=== PATIENT | female | born 1990 | race Caucasian/White ===

== ENCOUNTER 2017-09-10 23:01 | Emergency (ER) | payer OTHER ==
[~2017-09-10] VITALS: Ht 162.6 cm; Wt 148.0 kg
[~2017-09-10 23:01] MED LIST: MELATONIN PO; NORCO PO; PANT40TA25 PO; TRAZ-147 PO
[2017-09-10 23:11] VITALS: BP 153/94
[2017-09-10 23:53] LABS: BASOPHILS % (AUTO) 0.5 % (0.0-2.0); EOSINOPHILS % (AUTO) 3.9 % (1.0-6.0); HEMATOCRIT 39.4 % (36-46); HEMOGLOBIN 13.3 g/dL (12.0-16.0); LYMPHOCYTES # (AUTO) 0.9 K/uL (1.0-4.8); LYMPHOCYTES % (AUTO) 10.3 % (22.0-44.0); MEAN CORPUSCULAR HEMOGLOBIN 28.9 pg (26.0-34.0); MEAN CORPUSCULAR HGB CONC 33.8 G/dL (31.0-37.0); MEAN CORPUSCULAR VOLUME 85 fL (80-100); MONOCYTES # (AUTO) 0.6 K/uL (0.1-1.0); MONOCYTES % (AUTO) 7.4 % (2.0-9.0); NEUTROPHILS # (AUTO) 6.5 K/uL (1.8-7.7); NEUTROPHILS % (AUTO) 77.9 % (40.0-70.0); PLATELET COUNT (AUTO) 267 K/uL (150-450); RED BLOOD CELL COUNT(AUTO) 4.61 MIL/uL (4.00-5.20); RED CELL DISTRIBUTION WIDTH 14.3 % (11.5-14.5)
[2017-09-11 00:08] LABS: ANION GAP 12 mmol/L (8-16); CALCIUM, TOTAL 9.3 mg/dL (8.8-10.5); CARBON DIOXIDE 25 mmol/L (22-29); CHLORIDE 102 mmol/L (98-107); CREATININE 0.77 mg/dL (0.60-1.30); GLOMERULAR FILTR. RATE CALC > 60 mL/min (>60); GLUCOSE,RANDOM 100 mg/dL (70-110); SODIUM SERUM 139 mmol/L (136-145); UREA NITROGEN, BLOOD 11 mg/dL (7-18)
[2017-09-11 00:09] LABS: AMPHET/METH SCREEN,URINE NEGATIVE (NEGATIVE); BARBITURATE SCREEN, URINE NEGATIVE (NEGATIVE); BENZODIAZEPINES SCREEN,URINE NEGATIVE (NEGATIVE); CANNABINOID SCREEN,URINE NEGATIVE (NEGATIVE); COCAINE SCREEN,URINE NEGATIVE (NEGATIVE); METHADONE SCREEN, URINE NEGATIVE (NEGATIVE); OPIATE SCREEN,URINE NEGATIVE (NEGATIVE)
[2017-09-11 00:10] LABS: PHENCYCLIDINE SCREEN,URINE NEGATIVE (NEGATIVE)
[2017-09-11 00:14] LABS: ALANINE AMINOTRANSFERASE 44 U/L (12-78); ALKALINE PHOSPHATASE 81 U/L (46-116); ASPARTATE AMINOTRANSFERASE 32 U/L (15-37); BILIRUBIN,TOTAL 0.4 mg/dL (0.1-1.0); TOTAL PROTEIN, SERUM 7.6 g/dL (6.4-8.2)
[2017-09-11 00:27] LABS: ALBUMIN 3.9 g/dL (3.4-5.0)
[2017-09-11] MEDS ORDERED: ACETAMINOPHEN 325 MG TABLET PO ONE (00:30)
== END 2017-09-11 00:52 | disposition home or self-care (01) ==
LOC: EMS 23:02
DX: F31.9 Bipolar disorder, unspecified (principal); Z59.0 Homelessness; Z88.0 Allergy status to penicillin; Z90.49 Acquired absence of other specified parts of digestive tract
CPT/HCPCS: 36415; 80053; 80307; 84703; 85025; 99284; G0480

== ENCOUNTER 2019-08-02 00:01 | Emergency (ER) | payer OTHER ==
[~2019-08-02] VITALS: Ht 160 cm; Wt 136.4 kg
[2019-08-02 03:42] LABS: AMPHET/METH SCREEN,URINE NEGATIVE (NEGATIVE); BARBITURATE SCREEN, URINE NEGATIVE (NEGATIVE); BENZODIAZEPINES SCREEN,URINE NEGATIVE (NEGATIVE); CANNABINOID SCREEN,URINE NEGATIVE (NEGATIVE); COCAINE SCREEN,URINE NEGATIVE (NEGATIVE); METHADONE SCREEN, URINE NEGATIVE (NEGATIVE); OPIATE SCREEN,URINE NEGATIVE (NEGATIVE)
[2019-08-02 03:43] LABS: PHENCYCLIDINE SCREEN,URINE NEGATIVE (NEGATIVE)
[2019-08-02 04:29] LABS: BASOPHILS % (AUTO) 0.6 % (0.0-2.0); EOSINOPHILS % (AUTO) 2.9 % (1.0-6.0); HEMATOCRIT 37.3 % (36-46); HEMOGLOBIN 12.4 g/dL (12.0-16.0); LYMPHOCYTES % (AUTO) 22.7 % (22.0-44.0); MEAN CORPUSCULAR HEMOGLOBIN 29.3 pg (26.0-34.0); MEAN CORPUSCULAR HGB CONC 33.2 G/dL (31.0-37.0); MEAN CORPUSCULAR VOLUME 88 fL (80-100); MONOCYTES # (AUTO) 0.6 K/uL (0.1-1.0); MONOCYTES % (AUTO) 7.3 % (2.0-9.0); NEUTROPHILS # (AUTO) 5.9 K/uL (1.8-7.7); NEUTROPHILS % (AUTO) 66.5 % (40.0-70.0); PLATELET COUNT (AUTO) 294 K/uL (150-450); RED BLOOD CELL COUNT(AUTO) 4.23 MIL/uL (4.00-5.20); RED CELL DISTRIBUTION WIDTH 13.4 % (11.5-14.5)
[2019-08-02 04:38] LABS: ANION GAP 7 mmol/L (8-16); CALCIUM, TOTAL 9.2 mg/dL (8.8-10.5); CARBON DIOXIDE 29 mmol/L (22-29); CHLORIDE 105 mmol/L (98-107); CREATININE 0.93 mg/dL (0.60-1.30); GLOMERULAR FILTR. RATE CALC > 60 mL/min (>60); GLUCOSE,RANDOM 96 mg/dL (70-110); POTASSIUM 3.6 mmol/L (3.5-5.1); SODIUM SERUM 141 mmol/L (136-145); UREA NITROGEN, BLOOD 12 mg/dL (7-18)
[2019-08-02 04:50] LABS: ALANINE AMINOTRANSFERASE 35 U/L (12-78); ALBUMIN 3.8 g/dL (3.4-5.0); ALKALINE PHOSPHATASE 85 U/L (46-116); ASPARTATE AMINOTRANSFERASE 38 U/L (15-37); BILIRUBIN,TOTAL 0.4 mg/dL (0.1-1.0); HCG,QUANTITATIVE < 1 mIU/mL (0-6); TOTAL PROTEIN, SERUM 7.9 g/dL (6.4-8.2)
[2019-08-02 08:15] VITALS: BP 135/70
== END 2019-08-02 08:57 | disposition home or self-care (01) ==
LOC: EMS 00:01
DX: F25.9 Schizoaffective disorder, unspecified (principal); F41.9 Anxiety disorder, unspecified; F31.9 Bipolar disorder, unspecified; Z59.0 Homelessness; Z88.0 Allergy status to penicillin; Z88.8 Allergy status to other drugs, medicaments and biological substances
CPT/HCPCS: 36415; 80053; 80307; 84702; 85025; 99285; G0480

== ENCOUNTER 2019-08-07 00:08 | Inpatient (IN) | payer MEDICAID, OTHER ==
[~2019-08-07] VITALS: Ht 162.6 cm; Wt 149.2 kg
[2019-08-07] MEDS ORDERED: TRAZ-257 PO (02:47)
[2019-08-07] MEDS ORDERED: NAPR-1025 PO (02:47)
[2019-08-07] MEDS ORDERED: OMEP20CA12 PO (02:47)
[2019-08-07 02:53] LABS: AMPHET/METH SCREEN,URINE NEGATIVE (NEGATIVE); BARBITURATE SCREEN, URINE NEGATIVE (NEGATIVE); BENZODIAZEPINES SCREEN,URINE NEGATIVE (NEGATIVE); CANNABINOID SCREEN,URINE NEGATIVE (NEGATIVE); COCAINE SCREEN,URINE NEGATIVE (NEGATIVE); METHADONE SCREEN, URINE NEGATIVE (NEGATIVE); OPIATE SCREEN,URINE NEGATIVE (NEGATIVE)
[2019-08-07 02:54] LABS: PHENCYCLIDINE SCREEN,URINE NEGATIVE (NEGATIVE)
[2019-08-07 02:54] LABS: BASOPHILS % (AUTO) 0.6 % (0.0-2.0); EOSINOPHILS % (AUTO) 3.2 % (1.0-6.0); HEMATOCRIT 37.1 % (36-46); HEMOGLOBIN 12.3 g/dL (12.0-16.0); LYMPHOCYTES # (AUTO) 2.5 K/uL (1.0-4.8); LYMPHOCYTES % (AUTO) 26.9 % (22.0-44.0); MEAN CORPUSCULAR HEMOGLOBIN 29.4 pg (26.0-34.0); MEAN CORPUSCULAR HGB CONC 33.2 G/dL (31.0-37.0); MEAN CORPUSCULAR VOLUME 89 fL (80-100); MONOCYTES # (AUTO) 0.8 K/uL (0.1-1.0); MONOCYTES % (AUTO) 8.6 % (2.0-9.0); NEUTROPHILS # (AUTO) 5.6 K/uL (1.8-7.7); NEUTROPHILS % (AUTO) 60.7 % (40.0-70.0); PLATELET COUNT (AUTO) 304 K/uL (150-450); RED BLOOD CELL COUNT(AUTO) 4.19 MIL/uL (4.00-5.20); RED CELL DISTRIBUTION WIDTH 13.8 % (11.5-14.5)
[2019-08-07 03:03] LABS: ANION GAP 5 mmol/L (8-16); CALCIUM, TOTAL 9.3 mg/dL (8.8-10.5); CARBON DIOXIDE 30 mmol/L (22-29); CHLORIDE 103 mmol/L (98-107); CREATININE 1.01 mg/dL (0.60-1.30); GLOMERULAR FILTR. RATE CALC > 60 mL/min (>60); GLUCOSE,RANDOM 111 mg/dL (70-110); POTASSIUM 3.2 mmol/L (3.5-5.1); SODIUM SERUM 138 mmol/L (136-145); UREA NITROGEN, BLOOD 13 mg/dL (7-18)
[2019-08-07 03:14] LABS: ALANINE AMINOTRANSFERASE 64 U/L (12-78); ALKALINE PHOSPHATASE 79 U/L (46-116); ASPARTATE AMINOTRANSFERASE 89 U/L (15-37); BILIRUBIN,TOTAL 0.5 mg/dL (0.1-1.0); HCG,QUANTITATIVE < 1 mIU/mL (0-6); TOTAL PROTEIN, SERUM 8.1 g/dL (6.4-8.2)
[2019-08-07] MEDS ORDERED: POTASSIUM CHLORIDE 20 MEQ ER TABLET PO ONE (03:45)
[2019-08-07] MEDS ORDERED: HALOPERIDOL 5 MG TABLET PO ONE (12:30)
[2019-08-07] MEDS ORDERED: ZOLPIDEM TARTRATE 10 MG TABLET PO PRN (13:30)
[2019-08-07] MEDS ORDERED: IBUPROFEN 400 MG TABLET PO PRN (21:15)
[2019-08-07] MEDS ORDERED: ALBUTEROL SULFATE HFA 90 MCG/PUFF 8 GM INHALER IH PRN (21:15)
[2019-08-07] MEDS ORDERED: MAGNESIUM HYDROXIDE SUSPENSION 30 ML UDCUP PO PRN (21:15)
[2019-08-07] MEDS ORDERED: MAG HYDROX/AL HYDROX/SIMETH ES 30 ML SUSPENSION UDCUP PO PRN (21:15)
[2019-08-07] MEDS ORDERED: CloNIDine HCL 0.1 MG TABLET PO PRN (21:15)
[2019-08-07] MEDS ORDERED: ACETAMINOPHEN 325 MG TABLET PO PRN (21:15)
[2019-08-07] MEDS ORDERED: PETROLATUM,WHITE 28 GM JELLY TP PRN (21:15)
[2019-08-07] MEDS ORDERED: DOCUSATE SODIUM 100 MG CAPSULE PO PRN (21:15)
[2019-08-07] MEDS ORDERED: ONDANSETRON HCL 4 MG TABLET PO PRN (21:15)
[2019-08-07] MEDS ORDERED: LOPERAMIDE HCL 2 MG CAPSULE PO PRN (21:15)
[2019-08-07] MEDS ORDERED: NICOTINE 14 MG/24 HOUR PATCH TD PRN (21:15)
[2019-08-07 23:11] VITALS: BP 123/88
[2019-08-08] MEDS ORDERED: INFLUENZA VIRUS VACCINE QVS 2019-20 (3YR+)/PF 60 MCG/0.5 ML SYRINGE IM ONE (00:30)
[2019-08-08 06:29] VITALS: BP 118/72
[2019-08-08 08:21] VITALS: BP 126/69
[2019-08-08] MEDS ORDERED: LURASIDONE HCL 40 MG TABLET PO ONE (11:30)
[2019-08-08 16:09] VITALS: BP 121/73
[2019-08-08] MEDS ORDERED: NAPROXEN 500 MG TABLET PO SCH (17:00)
[2019-08-08] MEDS ORDERED: LURA40 PO (22:06)
[2019-08-09 05:26] VITALS: BP 113/76
[2019-08-09] MEDS: LURASIDONE HCL 40 MG TABLET PO SCH (06:54)
[2019-08-09] MEDS: NAPROXEN 500 MG TABLET PO SCH ×2 (06:54→16:42)
[2019-08-09] MEDS: OMEPRAZOLE 20 MG CAPSULE PO SCH (08:08)
[2019-08-09 08:13] VITALS: BP 135/70
[2019-08-09 16:57] VITALS: BP 138/86
[2019-08-09] MEDS: LORazepam 2 MG TABLET PO PRN (17:35)
[2019-08-10] MEDS: LURASIDONE HCL 40 MG TABLET PO SCH (06:26)
[2019-08-10] MEDS: NAPROXEN 500 MG TABLET PO SCH ×2 (06:26→17:38)
[2019-08-10 06:36] VITALS: BP 137/80
[2019-08-10 08:30] VITALS: BP 120/69
[2019-08-10] MEDS: OMEPRAZOLE 20 MG CAPSULE PO SCH (08:46)
[2019-08-10 17:29] VITALS: BP 140/81
[2019-08-11 00:34] VITALS: BP_SYST 134; BP_DIAS 6; BP_DIAS 62
[2019-08-11 01:35] VITALS: BP 132/65
[2019-08-11] MEDS: NAPROXEN 500 MG TABLET PO SCH ×2 (06:33→17:05)
[2019-08-11] MEDS: LURASIDONE HCL 40 MG TABLET PO SCH (06:33)
[2019-08-11 07:59] LABS: BASOPHILS % (AUTO) 0.7 % (0.0-2.0); HEMATOCRIT 39.9 % (36-46); HEMOGLOBIN 12.9 g/dL (12.0-16.0); LYMPHOCYTES % (AUTO) 29.3 % (22.0-44.0); MEAN CORPUSCULAR HEMOGLOBIN 29.2 pg (26.0-34.0); MEAN CORPUSCULAR HGB CONC 32.5 G/dL (31.0-37.0); MEAN CORPUSCULAR VOLUME 90 fL (80-100); MONOCYTES # (AUTO) 0.6 K/uL (0.1-1.0); MONOCYTES % (AUTO) 9.1 % (2.0-9.0); NEUTROPHILS # (AUTO) 3.9 K/uL (1.8-7.7); NEUTROPHILS % (AUTO) 55.9 % (40.0-70.0); PLATELET COUNT (AUTO) 285 K/uL (150-450); RED BLOOD CELL COUNT(AUTO) 4.44 MIL/uL (4.00-5.20); RED CELL DISTRIBUTION WIDTH 13.9 % (11.5-14.5)
[2019-08-11] MEDS: OMEPRAZOLE 20 MG CAPSULE PO SCH (08:16)
[2019-08-11 08:24] LABS: HEMOGLOBIN A1C 5.7 % (3.8-5.6)
[2019-08-11 08:25] LABS: ALANINE AMINOTRANSFERASE 58 U/L (12-78); ALBUMIN 3.8 g/dL (3.4-5.0); ALKALINE PHOSPHATASE 75 U/L (46-116); ANION GAP 7 mmol/L (8-16); ASPARTATE AMINOTRANSFERASE 44 U/L (15-37); BILIRUBIN,TOTAL 0.3 mg/dL (0.1-1.0); CALCIUM, TOTAL 9.2 mg/dL (8.8-10.5); CARBON DIOXIDE 29 mmol/L (22-29); CHLORIDE 104 mmol/L (98-107); CHOL/HDL RATIO 4.6 (3.9-5.7); CHOLESTEROL 188 mg/dL (131-200); CREATININE 0.73 mg/dL (0.60-1.30); GLOMERULAR FILTR. RATE CALC > 60 mL/min (>60); GLUCOSE,RANDOM 98 mg/dL (70-110); HDL CHOLESTEROL 41 mg/dL (40-60); LDL CHOL (CALC.) 108 mg/dL (0-130); POTASSIUM 4.2 mmol/L (3.5-5.1); SODIUM SERUM 140 mmol/L (136-145); THYROID STIMULATING HORMONE 2.53 uIU/mL (0.36-3.74); TOTAL PROTEIN, SERUM 7.3 g/dL (6.4-8.2); TRIGLYCERIDES 197 mg/dL (15-150); UREA NITROGEN, BLOOD 12 mg/dL (7-18)
[2019-08-11] MEDS: LORazepam 2 MG TABLET PO PRN ×2 (08:39→17:05)
[2019-08-11] MEDS: GuaiFENesin/D-METHORPHAN [SUGAR-FREE] 200-20MG/10 ML SYRUP UDCUP PO PRN (08:42)
[2019-08-11 16:02] VITALS: BP 136/69
[2019-08-11] MEDS: HALOPERIDOL 5 MG TABLET PO PRN (17:05)
[2019-08-12 03:59] VITALS: BP 138/92
[2019-08-12] MEDS: LURASIDONE HCL 40 MG TABLET PO SCH (06:55)
[2019-08-12] MEDS: NAPROXEN 500 MG TABLET PO SCH ×2 (06:55→16:07)
[2019-08-12 08:25] VITALS: BP 120/66
[2019-08-12] MEDS: OMEPRAZOLE 20 MG CAPSULE PO SCH (09:25)
[2019-08-12] MEDS: LORazepam 2 MG TABLET PO PRN ×2 (13:00→16:08)
[2019-08-12] MEDS: HALOPERIDOL 5 MG TABLET PO PRN (16:07)
[2019-08-12 16:24] VITALS: BP 158/97
[2019-08-12] MEDS: GuaiFENesin/D-METHORPHAN [SUGAR-FREE] 200-20MG/10 ML SYRUP UDCUP PO PRN (18:19)
[2019-08-13 01:19] VITALS: BP 126/74
[2019-08-13 07:00] VITALS: BP 124/81
[2019-08-13] MEDS: NAPROXEN 500 MG TABLET PO SCH ×2 (07:07→16:09)
[2019-08-13] MEDS: LURASIDONE HCL 40 MG TABLET PO SCH (07:07)
[2019-08-13 08:15] VITALS: BP 162/91
[2019-08-13] MEDS: LORazepam 2 MG TABLET PO PRN ×2 (08:40→16:09)
[2019-08-13] MEDS: OMEPRAZOLE 20 MG CAPSULE PO SCH (08:40)
[2019-08-13 16:01] VITALS: BP 134/67
[2019-08-13 17:15] LABS: GLUCOMETER DEV NAME(LOC) BV3N.; GLUCOSE,POINT OF CARE 126 MG/DL (70-110)
[2019-08-14 03:30] VITALS: BP 127/66
[2019-08-14] MEDS: LURASIDONE HCL 40 MG TABLET PO SCH (06:42)
[2019-08-14] MEDS: NAPROXEN 500 MG TABLET PO SCH ×2 (06:42→16:11)
[2019-08-14 08:27] VITALS: BP 124/70
[2019-08-14] MEDS: OMEPRAZOLE 20 MG CAPSULE PO SCH (09:21)
[2019-08-14 16:15] VITALS: BP 146/89
[2019-08-15 04:30] VITALS: BP 140/91
[2019-08-15] MEDS: LURASIDONE HCL 40 MG TABLET PO SCH (06:33)
[2019-08-15] MEDS: NAPROXEN 500 MG TABLET PO SCH (06:47)
[2019-08-15] MEDS: LORazepam 2 MG TABLET PO PRN (08:15)
[2019-08-15] MEDS: OMEPRAZOLE 20 MG CAPSULE PO SCH (08:15)
[2019-08-15 08:24] VITALS: BP 163/91
[2019-08-15] MEDS ORDERED: LURA40 PO (09:03)
[2019-08-15 09:30] VITALS: BP 138/74
== END 2019-08-15 12:20 | disposition home or self-care (01) | DRG 750 ==
LOC: EMS 00:12 → B3A 16:17
DX: F25.1 Schizoaffective disorder, depressive type (principal); E66.01 Morbid (severe) obesity due to excess calories; E78.5 Hyperlipidemia, unspecified; E87.6 Hypokalemia; I10 Essential (primary) hypertension; K21.9 Gastro-esophageal reflux disease without esophagitis; Z79.899 Other long term (current) drug therapy; Z28.21 Immunization not carried out because of patient refusal
CPT/HCPCS: 83036; 84443; G0480; J3535

== ENCOUNTER 2019-09-08 21:02 | Inpatient (IN) | payer MEDICAID, OTHER ==
[~2019-09-08] VITALS: Ht 160 cm; Wt 144.5 kg
[~2019-09-08 21:02] MED LIST changes: +LURA40TA2 PO; -MELATONIN PO; +NAPR-1025 PO; -NORCO PO; +OMEP20CA12 PO; -PANT40TA25 PO; -TRAZ-147 PO
[2019-09-09 00:50] LABS: BASOPHILS % (AUTO) 0.6 % (0.0-2.0); EOSINOPHILS % (AUTO) 2.8 % (1.0-6.0); HEMATOCRIT 39.2 % (36-46); HEMOGLOBIN 13.1 g/dL (12.0-16.0); LYMPHOCYTES # (AUTO) 2.2 K/uL (1.0-4.8); LYMPHOCYTES % (AUTO) 26.3 % (22.0-44.0); MEAN CORPUSCULAR HEMOGLOBIN 29.7 pg (26.0-34.0); MEAN CORPUSCULAR HGB CONC 33.5 G/dL (31.0-37.0); MEAN CORPUSCULAR VOLUME 89 fL (80-100); MONOCYTES # (AUTO) 0.5 K/uL (0.1-1.0); MONOCYTES % (AUTO) 5.6 % (2.0-9.0); NEUTROPHILS # (AUTO) 5.5 K/uL (1.8-7.7); NEUTROPHILS % (AUTO) 64.7 % (40.0-70.0); PLATELET COUNT (AUTO) 326 K/uL (150-450); RED BLOOD CELL COUNT(AUTO) 4.43 MIL/uL (4.00-5.20); RED CELL DISTRIBUTION WIDTH 13.9 % (11.5-14.5)
[2019-09-09 00:57] LABS: AMPHET/METH SCREEN,URINE NEGATIVE (NEGATIVE); BARBITURATE SCREEN, URINE NEGATIVE (NEGATIVE); BENZODIAZEPINES SCREEN,URINE NEGATIVE (NEGATIVE); CANNABINOID SCREEN,URINE NEGATIVE (NEGATIVE); COCAINE SCREEN,URINE NEGATIVE (NEGATIVE); METHADONE SCREEN, URINE NEGATIVE (NEGATIVE); OPIATE SCREEN,URINE NEGATIVE (NEGATIVE)
[2019-09-09 01:00] LABS: ANION GAP 4 mmol/L (8-16); CALCIUM, TOTAL 9.6 mg/dL (8.8-10.5); CARBON DIOXIDE 30 mmol/L (22-29); CHLORIDE 103 mmol/L (98-107); CREATININE 0.72 mg/dL (0.60-1.30); GLOMERULAR FILTR. RATE CALC > 60 mL/min (>60); GLUCOSE,RANDOM 103 mg/dL (70-110); POTASSIUM 3.7 mmol/L (3.5-5.1); SODIUM SERUM 137 mmol/L (136-145); UREA NITROGEN, BLOOD 12 mg/dL (7-18)
[2019-09-09 01:01] LABS: PHENCYCLIDINE SCREEN,URINE NEGATIVE (NEGATIVE)
[2019-09-09 01:21] LABS: ALANINE AMINOTRANSFERASE 28 U/L (12-78); ALBUMIN 3.4 g/dL (3.4-5.0); ALKALINE PHOSPHATASE 82 U/L (46-116); ASPARTATE AMINOTRANSFERASE 17 U/L (15-37); BILIRUBIN,TOTAL 0.2 mg/dL (0.1-1.0); HCG,QUANTITATIVE < 1 mIU/mL (0-6); TOTAL PROTEIN, SERUM 7.7 g/dL (6.4-8.2)
[2019-09-09] MEDS ORDERED: OLANZapine 5 MG RAPDIS TABLET PO PRN (03:45)
[2019-09-09] MEDS ORDERED: ZOLPIDEM TARTRATE 10 MG TABLET PO PRN (03:45)
[2019-09-09 05:45] VITALS: BP 145/83
[2019-09-09] MEDS ORDERED: INFLUENZA VIRUS VACCINE QVS 2019-20 (3YR+)/PF 60 MCG/0.5 ML SYRINGE IM ONE (07:45)
[2019-09-09 09:31] VITALS: BP 141/89
[2019-09-09] MEDS ORDERED: ONDANSETRON HCL 4 MG TABLET PO PRN (16:00)
[2019-09-09] MEDS ORDERED: LOPERAMIDE HCL 2 MG CAPSULE PO PRN (16:00)
[2019-09-09] MEDS ORDERED: PETROLATUM,WHITE 28 GM JELLY TP PRN (16:00)
[2019-09-09] MEDS ORDERED: MAG HYDROX/AL HYDROX/SIMETH ES 30 ML SUSPENSION UDCUP PO PRN (16:00)
[2019-09-09] MEDS ORDERED: NICOTINE 14 MG/24 HOUR PATCH TD PRN (16:00)
[2019-09-09] MEDS ORDERED: CloNIDine HCL 0.1 MG TABLET PO PRN (16:00)
[2019-09-09] MEDS ORDERED: DOCUSATE SODIUM 100 MG CAPSULE PO PRN (16:00)
[2019-09-09] MEDS ORDERED: MAGNESIUM HYDROXIDE SUSPENSION 30 ML UDCUP PO PRN (16:00)
[2019-09-09 16:01] VITALS: BP 138/78
[2019-09-09] MEDS: IBUPROFEN 400 MG TABLET PO PRN (16:01)
[2019-09-09] MEDS: GuaiFENesin/D-METHORPHAN [SUGAR-FREE] 200-20MG/10 ML SYRUP UDCUP PO PRN (16:49)
[2019-09-09] MEDS: ACETAMINOPHEN 325 MG TABLET PO PRN (22:27)
[2019-09-10] MEDS: GuaiFENesin/D-METHORPHAN [SUGAR-FREE] 200-20MG/10 ML SYRUP UDCUP PO PRN ×2 (01:22→08:06)
[2019-09-10] MEDS: IBUPROFEN 400 MG TABLET PO PRN ×2 (01:23→18:15)
[2019-09-10 01:26] VITALS: BP 120/74
[2019-09-10] MEDS ORDERED: LURASIDONE HCL 40 MG TABLET PO SCH (07:00)
[2019-09-10 08:29] VITALS: BP 132/74
[2019-09-10] MEDS: ARIPiprazole 10 MG TABLET PO SCH (08:45)
[2019-09-10] MEDS: LORazepam 2 MG TABLET PO PRN (10:31)
[2019-09-10 16:14] VITALS: BP 140/79
[2019-09-10 18:15] VITALS: BP 128/76
[2019-09-11 01:18] VITALS: BP 130/80
[2019-09-11] MEDS: GuaiFENesin/D-METHORPHAN [SUGAR-FREE] 200-20MG/10 ML SYRUP UDCUP PO PRN (01:22)
[2019-09-11] MEDS: IBUPROFEN 400 MG TABLET PO PRN ×2 (01:22→22:07)
[2019-09-11 08:31] VITALS: BP 143/86
[2019-09-11] MEDS: ARIPiprazole 10 MG TABLET PO SCH (08:53)
[2019-09-11 16:11] VITALS: BP 122/68
[2019-09-12] MEDS: GuaiFENesin/D-METHORPHAN [SUGAR-FREE] 200-20MG/10 ML SYRUP UDCUP PO PRN (00:21)
[2019-09-12 07:56] LABS: CHOL/HDL RATIO 6.3 (3.9-5.7)
[2019-09-12 08:26] VITALS: BP 160/90
[2019-09-12] MEDS: ARIPiprazole 10 MG TABLET PO SCH (08:33)
[2019-09-12 16:07] VITALS: BP 137/76
[2019-09-12] MEDS: IBUPROFEN 400 MG TABLET PO PRN (17:20)
[2019-09-12] MEDS ORDERED: CALCIUM CARBONATE 500 MG CHEWABLE TABLET CHEW PRN (22:15)
[2019-09-13 00:49] VITALS: BP 119/77
[2019-09-13] MEDS: ARIPiprazole 10 MG TABLET PO SCH (08:46)
[2019-09-13] MEDS: LORazepam 2 MG TABLET PO PRN (08:47)
[2019-09-13 16:13] VITALS: BP 123/87
[2019-09-13] MEDS: IBUPROFEN 400 MG TABLET PO PRN (17:34)
[2019-09-14 03:50] VITALS: BP 159/88
[2019-09-14 05:00] VITALS: BP 130/85
[2019-09-14] MEDS: LORazepam 2 MG TABLET PO PRN (08:12)
[2019-09-14] MEDS: ARIPiprazole 10 MG TABLET PO SCH (08:12)
[2019-09-14 08:16] VITALS: BP 134/73
[2019-09-15 00:01] VITALS: BP 130/80
[2019-09-15] MEDS: ALBUTEROL SULFATE HFA 90 MCG/PUFF 8 GM INHALER IH PRN (01:05)
[2019-09-15 01:16] VITALS: BP 151/91
[2019-09-15] MEDS: LORazepam 2 MG TABLET PO PRN ×2 (01:18→20:02)
[2019-09-15] MEDS: IBUPROFEN 400 MG TABLET PO PRN (01:18)
[2019-09-15 02:18] VITALS: BP 138/90
[2019-09-15 08:05] VITALS: BP 132/77
[2019-09-15] MEDS: ARIPiprazole 10 MG TABLET PO SCH (08:41)
[2019-09-15] MEDS: ACETAMINOPHEN 325 MG TABLET PO PRN (15:54)
[2019-09-15 16:33] VITALS: BP 142/81
[2019-09-15 16:34] VITALS: BP 132/77
[2019-09-16 01:07] VITALS: BP 144/91
[2019-09-16] MEDS: ARIPiprazole 10 MG TABLET PO SCH (08:13)
[2019-09-16] MEDS: LORazepam 2 MG TABLET PO PRN ×2 (08:13→20:06)
[2019-09-16] MEDS: IBUPROFEN 400 MG TABLET PO PRN ×2 (08:14→20:06)
[2019-09-16 08:35] VITALS: BP_SYST 150; BP_SYST 152; BP_DIAS 67; BP_DIAS 81
[2019-09-16 09:14] VITALS: BP 138/72
[2019-09-16 20:22] VITALS: BP 120/66
[2019-09-17 03:22] VITALS: BP 142/90
[2019-09-17] MEDS: ARIPiprazole 10 MG TABLET PO SCH (08:33)
[2019-09-17] MEDS: LORazepam 2 MG TABLET PO PRN (08:33)
[2019-09-17] MEDS: OMEGA-3/DHA/EPA/FISH OIL 1,000 MG CAPSULE PO SCH (08:33)
[2019-09-17] MEDS: MULTIVITAMINS WITH MINERALS, THERAPEUTIC TABLET PO SCH (08:34)
[2019-09-17 08:36] VITALS: BP 136/89
[2019-09-17 16:18] VITALS: BP 150/77
[2019-09-18 01:02] VITALS: BP 143/92
[2019-09-18] MEDS: GuaiFENesin/D-METHORPHAN [SUGAR-FREE] 200-20MG/10 ML SYRUP UDCUP PO PRN (01:05)
[2019-09-18] MEDS: LORazepam 2 MG TABLET PO PRN ×3 (01:05→20:14)
[2019-09-18] MEDS: IBUPROFEN 400 MG TABLET PO PRN ×2 (01:05→16:49)
[2019-09-18 05:15] VITALS: BP 143/92
[2019-09-18 08:02] VITALS: BP 139/83
[2019-09-18] MEDS: MULTIVITAMINS WITH MINERALS, THERAPEUTIC TABLET PO SCH (08:45)
[2019-09-18] MEDS: ARIPiprazole 10 MG TABLET PO SCH (08:45)
[2019-09-18] MEDS: OMEGA-3/DHA/EPA/FISH OIL 1,000 MG CAPSULE PO SCH (08:45)
[2019-09-18 16:11] VITALS: BP 132/78
[2019-09-19 00:15] VITALS: BP 149/77
[2019-09-19] MEDS: IBUPROFEN 400 MG TABLET PO PRN (02:53)
[2019-09-19 08:34] VITALS: BP 121/88
[2019-09-19] MEDS: OMEGA-3/DHA/EPA/FISH OIL 1,000 MG CAPSULE PO SCH ×2 (08:43→09:00)
[2019-09-19] MEDS: ARIPiprazole 10 MG TABLET PO SCH (08:43)
[2019-09-19] MEDS: MULTIVITAMINS WITH MINERALS, THERAPEUTIC TABLET PO SCH ×3 (08:44→10:43)
[2019-09-19] MEDS: ALBUTEROL SULFATE HFA 90 MCG/PUFF 8 GM INHALER IH PRN (10:26)
[2019-09-19] MEDS ORDERED: ARIP10TA8 PO (11:07)
[2019-09-19 16:12] VITALS: BP 140/75
== END 2019-09-19 17:50 | disposition home or self-care (01) | DRG 750 ==
LOC: EMS 21:04 → B2S 09-09 04:13
DX: F25.0 Schizoaffective disorder, bipolar type (principal); E66.01 Morbid (severe) obesity due to excess calories; R45.851 Suicidal ideations; F41.9 Anxiety disorder, unspecified; E78.5 Hyperlipidemia, unspecified; I10 Essential (primary) hypertension; J40 Bronchitis, not specified as acute or chronic; K21.9 Gastro-esophageal reflux disease without esophagitis; Z79.899 Other long term (current) drug therapy; Z59.0 Homelessness; Z68.43 Body mass index [BMI] 50.0-59.9, adult; Z28.21 Immunization not carried out because of patient refusal
CPT/HCPCS: 87081; G0480; J3535

== ENCOUNTER 2022-01-24 21:45 | Emergency (ER) | payer MEDICAID, OTHER ==
[~2022-01-24] VITALS: Ht 160 cm; Wt 121.7 kg
[~2022-01-24 21:45] MED LIST changes: +ARIP10TA38 PO; -LURA40TA2 PO; -NAPR-1025 PO; -OMEP20CA12 PO
[2022-01-24 22:50] LABS: BASOPHILS % (AUTO) 0.5 % (0.0-2.0); EOSINOPHILS % (AUTO) 3.8 % (1.0-6.0); HEMATOCRIT 33.4 % (36-46); HEMOGLOBIN 11.1 g/dL (12.0-16.0); LYMPHOCYTES # (AUTO) 2.1 K/uL (1.0-4.8); LYMPHOCYTES % (AUTO) 24.1 % (22.0-44.0); MEAN CORPUSCULAR HEMOGLOBIN 29.4 pg (26.0-34.0); MEAN CORPUSCULAR HGB CONC 33.3 G/dL (31.0-37.0); MEAN CORPUSCULAR VOLUME 88 fL (80-100); MONOCYTES # (AUTO) 0.6 K/uL (0.1-1.0); MONOCYTES % (AUTO) 6.5 % (2.0-9.0); NEUTROPHILS # (AUTO) 5.8 K/uL (1.8-7.7); NEUTROPHILS % (AUTO) 65.1 % (40.0-70.0); PLATELET COUNT (AUTO) 319 K/uL (150-450); RED BLOOD CELL COUNT(AUTO) 3.79 MIL/uL (4.00-5.20); RED CELL DISTRIBUTION WIDTH 13.5 % (11.5-14.5)
[2022-01-24 23:04] LABS: ANION GAP 7 mmol/L (8-16); CALCIUM, TOTAL 9.2 mg/dL (8.8-10.5); CARBON DIOXIDE 28 mmol/L (22-29); CHLORIDE 103 mmol/L (98-107); CREATININE 0.78 mg/dL (0.60-1.30); GLUCOSE,RANDOM 106 mg/dL (70-110); POTASSIUM 3.7 mmol/L (3.5-5.1); SODIUM SERUM 138 mmol/L (136-145); UREA NITROGEN, BLOOD 18 mg/dL (7-18)
[2022-01-24 23:05] LABS: GLOMERULAR FILTR. RATE CALC > 60 mL/min (>60)
[2022-01-24 23:09] LABS: ALANINE AMINOTRANSFERASE 21 U/L (12-78); ALBUMIN 3.1 g/dL (3.4-5.0); ALKALINE PHOSPHATASE 72 U/L (46-116); ASPARTATE AMINOTRANSFERASE 21 U/L (15-37); BILIRUBIN,TOTAL 0.2 mg/dL (0.1-1.0); TOTAL PROTEIN, SERUM 7.7 g/dL (6.4-8.2)
[2022-01-25 01:32] VITALS: BP 124/74
== END 2022-01-25 03:08 | disposition home or self-care (01) ==
LOC: EMS 21:49
DX: F25.1 Schizoaffective disorder, depressive type (principal); F31.9 Bipolar disorder, unspecified; Z90.49 Acquired absence of other specified parts of digestive tract; Z88.0 Allergy status to penicillin; Z88.8 Allergy status to other drugs, medicaments and biological substances; Z59.00 Homelessness unspecified; Z87.09 Personal history of other diseases of the respiratory system
CPT/HCPCS: 99283; 80053; 85025; 36415; G0480

== ENCOUNTER 2022-03-02 15:52 | Emergency (ER) | payer OTHER ==
[~2022-03-02] VITALS: Ht 162.6 cm; Wt 127.3 kg
[2022-03-02 16:08] VITALS: BP 109/76
[2022-03-02 16:24] LABS: BASOPHILS % (AUTO) 0.6 % (0.0-2.0); EOSINOPHILS % (AUTO) 5.8 % (1.0-6.0); HEMATOCRIT 34.8 % (36-46); HEMOGLOBIN 11.3 g/dL (12.0-16.0); LYMPHOCYTES # (AUTO) 1.9 K/uL (1.0-4.8); LYMPHOCYTES % (AUTO) 30.3 % (22.0-44.0); MEAN CORPUSCULAR HEMOGLOBIN 29.2 pg (26.0-34.0); MEAN CORPUSCULAR HGB CONC 32.5 G/dL (31.0-37.0); MEAN CORPUSCULAR VOLUME 90 fL (80-100); MONOCYTES # (AUTO) 0.4 K/uL (0.1-1.0); MONOCYTES % (AUTO) 6.7 % (2.0-9.0); NEUTROPHILS # (AUTO) 3.6 K/uL (1.8-7.7); NEUTROPHILS % (AUTO) 56.6 % (40.0-70.0); PLATELET COUNT (AUTO) 267 K/uL (150-450); RED BLOOD CELL COUNT(AUTO) 3.88 MIL/uL (4.00-5.20); RED CELL DISTRIBUTION WIDTH 14.2 % (11.5-14.5)
[2022-03-02 16:26] LABS: COVID AG,FIA SOURCE NASOPHARYNGEAL
[2022-03-02 16:36] LABS: ANION GAP 2 mmol/L (8-16); CALCIUM, TOTAL 8.8 mg/dL (8.8-10.5); CARBON DIOXIDE 29 mmol/L (22-29); CHLORIDE 104 mmol/L (98-107); CREATININE 0.69 mg/dL (0.60-1.30); GLOMERULAR FILTR. RATE CALC > 60 mL/min (>60); GLUCOSE,RANDOM 98 mg/dL (70-110); POTASSIUM 4.2 mmol/L (3.5-5.1); SODIUM SERUM 135 mmol/L (136-145); UREA NITROGEN, BLOOD 16 mg/dL (7-18)
[2022-03-02 16:47] LABS: ALANINE AMINOTRANSFERASE 33 U/L (12-78); ALBUMIN 3.2 g/dL (3.4-5.0); ALKALINE PHOSPHATASE 55 U/L (46-116); ASPARTATE AMINOTRANSFERASE 22 U/L (15-37); BILIRUBIN,TOTAL 0.2 mg/dL (0.1-1.0); HCG,QUANTITATIVE < 1 mIU/mL (0-6)
== END 2022-03-02 18:43 | disposition home or self-care (01) ==
LOC: EMS 15:53
DX: F31.9 Bipolar disorder, unspecified (principal); Z88.0 Allergy status to penicillin; Z88.8 Allergy status to other drugs, medicaments and biological substances; Z59.02 Unsheltered homelessness; Z20.822 Contact with and (suspected) exposure to COVID-19
CPT/HCPCS: 99283; 87426; 80053; 84702; 85025; 36415; G0480